=== PATIENT | male | born 1955 | race Two or more races ===

== ENCOUNTER 2018-06-25 11:13 | Inpatient (IN) ==
[2018-06-25] MEDS ORDERED: Lidocaine 1%/Epinephrine 1:100,000 Inj 30 ML Vial ONE (12:05)
[2018-06-25] MEDS ORDERED: Metoprolol Tartrate 25 MG Tablet PO ONE (12:33)
[2018-06-25] MEDS ORDERED: Chlorhexidine Gluconate 2% 1 Pack (2 Cloths) TOPICAL ONE (12:33)
[2018-06-25] MEDS ORDERED: fentaNYL Citrate Inj 100 MCG/2 ML Ampul ONE (12:50)
[2018-06-25] MEDS ORDERED: fentaNYL Citrate Inj 250 MCG/5 ML Ampul ONE (12:51)
[2018-06-25 12:54] LABS: Prothrombin Time 10.5 sec (9.8-11.6)
[2018-06-25] MEDS ORDERED: Sodium Chlor 0.9% Inj 500 ML IV.SIG SCH (13:00)
[2018-06-25] MEDS ORDERED: ceFAZolin 2 GM Premix Inj 2 GM/50 ML PIGGYBACK IV.SIG ONE (13:47)
[2018-06-25] MEDS ORDERED: ceFAZolin Inj 2,000 MG in Sodium Chlor 0.9% Inj 100 ML IV.SIG SCH (14:00)
[2018-06-25] MEDS ORDERED: Morphine Inj 4 MG/ML Vial IM PRN (18:20)
[2018-06-25] MEDS ORDERED: *Meperidine Inj 25 MG/ML Vial PERIprocedural Use ONLY ONE (18:55)
[2018-06-25] MEDS ORDERED: Sodium Chlor 0.9% Inj 1,000 ML IV.SIG SCH (19:00)
[2018-06-25] MEDS ORDERED: *morphine SULFATE 4 MG/ML PERIprocedure ONLY ONE (19:15)
[2018-06-25 19:53] LABS: Baso % (Auto) 0.4 % (0.0-2.0); Eos % (Auto) 0.1 % (0.0-4.0); Hematocrit 37.9 % (39.0-51.0); Hemoglobin 12.8 gm/dL (13.0-17.0); Lymph # (Auto) 0.6 th/mm3 (1.0-4.8); Lymph % (Auto) 6.1 % (9.0-44.0); Mean Corpuscular HGB Conc 33.8 % (32.0-36.0); Mean Corpuscular Hemoglobin 30.6 pg (27.0-34.0); Mean Corpuscular Volume 90.5 fL (80.0-100.0); Mean Platelet Volume 8.5 fL (7.0-11.0); Mono # (Auto) 0.1 th/mm3 (0.0-0.9); Mono % (Auto) 1.5 % (0.0-8.0); Neut # (Auto) 8.6 th/mm3 (1.8-7.7); Neut % (Auto) 91.9 % (16.0-70.0); Platelet Count 161 th/mm3 (150-450); Red Blood Count 4.19 mil/mm3 (4.50-5.90); Red Cell Distribution Width 12.7 % (11.6-17.2); White Blood Count 9.3 th/mm3 (4.0-11.0)
[2018-06-25 20:23] LABS: Calcium 7.8 mg/dL (8.5-10.1); Potassium 3.9 meq/L (3.5-5.1)
[2018-06-25] MEDS: Ketorolac Inj 30 MG/ML (IVP) Vial IV.PUSH SCH (21:08)
[2018-06-25] MEDS: Pantoprazole Inj 40 MG Vial IV.PUSH SCH (21:09)
[2018-06-25] MEDS: Docusate Sodium 100 MG Capsule PO SCH (21:10)
--- NOTE | 2018-06-25 21:11 | MP ---
cc: Golden Palacios MD DATE OF OPERATION: 06/25/2018 PREOPERATIVE DIAGNOSIS: [place] 3+4=7 prostate cancer. POSTOPERATIVE DIAGNOSIS: [place] 3+4=7 prostate cancer. PROCEDURE: Robotic-assisted laparoscopic radical prostatectomy with pelvic lymph node dissection. SURGEON: Golden Palacios MD DIGITAL MEDIA REPRESENTATIVE: Dr. Garcia ANESTHESIA: General. COMPLICATIONS: None. PREOPERATIVE ANTIBIOTICS: Ancef 1 gram IV. DRAINS: 1. Mathias catheter to drainage. 2. TAMMI drain to bulb suction. ESTIMATED BLOOD LOSS: 300 mL SPECIMENS: 1. Prostate, seminal vesicles. 2. Pelvic lymph nodes. 3. Left apical tissue. DISPOSITION: The patient was taken stable to recovery. INDICATIONS/SIGNIFICANT HISTORY: The patient is a 62-year-old male with a family history of prostate cancer. The patient was found to have an elevated PSA of 8. Transrectal ultrasound prostate biopsy was performed, which showed a [place] 3+4=7 prostate cancer. Treatment options discussed and he elected to proceed with robotic prostatectomy. Preoperative pelvic MRI was performed, which suggested an extraprostatic extension on the right posterolateral portion of the prostate. It also showed a 30 gram with the PI-RADS 5 lesion corresponding to the right posterolateral portion of the prostate. After risks, benefits, and alternatives were explained to the patient including the risk of urinary incontinence, erectile dysfunction, positive margin and need for adjuvant therapy. The patient elected to proceed. Informed consent was obtained. DETAILS OF PROCEDURE: The patient was properly identified and brought back to the operating room and laid supine on the operating table. Proper timeout was performed. After induction by Anesthesiology, the patient was then induced under general anesthetic. Appropriate preoperative antibiotics were given with one hour of start of procedure. The patient was placed in a steep Trendelenburg position. All pressure points were padded. The patient was then prepped and draped in normal sterile surgical fashion. A 16-Sinhala Mathias catheter was placed under sterile technique and clear urine returned. A stab incision was made just superior and lateral to the umbilicus on the patient's right side. Veress needle was then used to gain access to the abdominal cavity. Pneumoperitoneum was achieved. I then placed the 12 mm camera port after extending the incision blindly into the abdominal cavity, I then inserted the laparoscope. There was no evidence of bleeding or intra-abdominal injury. The abdomen was carefully inspected. No evidence of intra-abdominal adhesions. At this time, the 5 remaining ports were placed under direct visualization, including three 8 mm robotic ports, 2 on the left hand side and 1 on the right hand side. A 5 mm sucker port triangulated between the camera port and the right hand robotic port and a 12 mm certified nursing assistant instructor port near the ASIS on the patient's right side. All ports were placed under direct visualization. There was no intra-abdominal injury. At this time, the robot was then brought into position. I did reflect the takedown the left sigmoid colon with cold cut scissors. At this time, I then entered the space of Retzius by dropping the bladder in standard fashion. The periprostatic fat was then removed. This included the superficial DVC which was taken with a Bovie electrocautery. Once the periprostatic fat and superficial DVC were removed, then entered endopelvic fascia on the right hand side with both blunt and sharp dissection, I dissected the pelvic musculature towards the apex of the prostate. There was some significant accessory vessels, which did cause some bleeding, but these were controlled with bipolar electrocautery. Once I got towards the anterior portion of the prostate, I then switched to the left side, again entered the endopelvic fascia with scissors and bluntly dissected the muscular off of the prostate towards the anterior portion of the prostate. The patient's DVC was hard to delineate at this time. Therefore, I decided to turn my attention to the bladder neck. The bladder neck was easily identified. I then dissected down anteriorly through the bladder neck until the Mathias catheter was seen. The patient appeared to have a small median lobe. I was able to excise this median lobe and develop the posterior bladder neck. The bladder appeared to be intact. The bladder neck appeared to be preserved and very small. Both orifices were identified and were quite some distance from the bladder neck itself. I then entered the posterior Denonvilliers fascia and encountered the seminal vesicles. The seminal vessels were carefully dissected out in a standard fashion. The vas was divided and each side and used for retraction anteriorly. I was able to dissect the posterior portion of the prostate and bluntly dissect the rectum and posterior Denonvilliers off the underside of the prostate towards the apex of the prostate. At this point, I did a wide dissection, first on the right side due to the findings of the MRI, I did not nerve spare on the right side. Dissection was done with a robotic vessel sealer all the way towards the apex of the prostate. I did a nerve spare on the left side. I then was able to dissection close to the prostatic margin. A combination of blunt dissection and electrocautery was used. Once the posterior portion of the prostate was done, then turned to the anterior portion of the prostate. The prostate was completely mobilized and I was able to further delineate the DVC itself. A 1-0 loop Stratafix was then used to ligate the DVC stitch. I then came through anterior on the prostate, dividing the DVC exposing the anterior urethra. The catheter was then retracted. I divided the urethra with cold cut scissors. Rectourethralis muscle was then divided with scissors as well. At this point, the prostate was completely freed, it was then placed in the right colon gutter for later removal. The prostatic fossa was then inspected. There was some tissue at the left apex. This was carefully dissected out and sent off to Pathology for permanent. The rectum itself appeared to be intact. Hemostasis was achieved. At this point, I then did remove the lymph nodes from around the right obturator nerve. The lymph nodes were peeled off of the right obturator nerve and sent off to the pathologist. The nerve remained intact. A clip was then used at the end to divide the lymph nodes. I attempted a lymph node dissection on the left side, but the planes were very difficult to delineate for no apparent reason. However, due to the patient's anatomy, I decided not to do a lymph node dissection on the left side. At this point, a watertight vesicourethral anastomosis was then performed with a double armed 2-0 Quill stitch. The catheter was then irrigated at the end and there was no evidence of a leak. The catheter was seen going directly into the bladder under direct visualization. It was secured with 20 mL of sterile water. Three grams of J Luis was then used for hemostatic purposes. A TAMMI drain was then placed through the third robotic port, secured with 3-0 nylon. All ports were then removed under direct visualization. The prostate was placed in EndoCatch bag and extracted through the midline incision. It was closed with 3 interrupted 0 Vicryl. All skin incisions were closed with Monocryl and Dermabond. Sponge, needle and instrument count were correct at the end of the case. The patient was then extubated and sent to the recovery in stable condition, where he will be then transferred to the floor for routine postoperative care. A total of 3 liters of fluid were given during this case. MD MERISSA Dumont/anatoly , 06:31 PM , 06:47 PM
[2018-06-26 06:17] LABS: Hematocrit 37.7 % (39.0-51.0); Hemoglobin 12.2 gm/dL (13.0-17.0); Mean Corpuscular HGB Conc 32.4 % (32.0-36.0); Mean Corpuscular Hemoglobin 29.5 pg (27.0-34.0); Mean Corpuscular Volume 91.1 fL (80.0-100.0); Mean Platelet Volume 8.2 fL (7.0-11.0); Platelet Count 149 th/mm3 (150-450); Red Blood Count 4.14 mil/mm3 (4.50-5.90); Red Cell Distribution Width 12.6 % (11.6-17.2); White Blood Count 8.1 th/mm3 (4.0-11.0)
[2018-06-26 06:40] LABS: Carbon Dioxide 31.5 meq/L (21.0-32.0); Potassium 4.4 meq/L (3.5-5.1)
[2018-06-26] MEDS: Ketorolac Inj 30 MG/ML (IVP) Vial IV.PUSH SCH ×4 (06:59→22:31)
[2018-06-26] MEDS: Docusate Sodium 100 MG Capsule PO SCH ×2 (10:37→22:33)
--- NOTE | 2018-06-26 12:34 | P.PNURO ---
Subjective Patient symptoms today: Pt is s/p Robotic prostatectomy yesterday. Doing well. c/p some abd soreness at the incision sites, no f/c/n/v, Labs are stable. Ashby is in place, Urine is yellow color. Good UO. Minimal TAMMI output. Tolerated regular breakfast well He did not walk yet Objective Vital Signs: Vital Signs 06/25/18 18:50 06/25/18 19:00 06/25/18 19:15 Temperature 97.2 F L 97.5 F L Pulse Rate 87 80 73 Respiratory Rate 19 25 H 19 Blood Pressure 117/71 147/96 H 115/61 Pulse Oximetry 96 95 95 06/25/18 19:30 06/25/18 20:00 06/26/18 00:00 Temperature 98 F 98.4 F Pulse Rate 96 H 91 H Respiratory Rate 20 20 Blood Pressure 119/66 108/69 Pulse Oximetry 95 84 L 98 06/26/18 04:00 Temperature 98.2 F Pulse Rate 76 Respiratory Rate 18 Blood Pressure 106/62 Pulse Oximetry 98 Intake & Output 06/25/18 06/26/18 06/26/18 18:59 06:59 18:59 Intake Total 3000 / 3000 150 / 150 100 / 100 Output Total 300 / 300 800 / 800 Balance 2700 / 2700 -650 / -650 100 / 100 Weight 87.7 kg 87.7 kg Intake: IV 150 / 150 100 / 100 Ancef 2 GM Premix Inj 2 gm In 50 / 50 50 ml @ 0 mls/hr IV.SIG .STK- [facility] Rx#:[id number] Ancef Inj 1,000 MG In NS Inj 100 / 100 100 / 100 100 ML @ 200 mls/hr IV.SIG Q8H AKIRA Rx#:[id number] Anesthesia Amount 3000 / 3000 Output: Estimated Blood Loss 300 / 300 Urine Amount (Catheter) 800 / 800 Indwelling Urethral Catheter 800 / 800 Other: Weight On Admission 87.7 kg Result Diagrams: 06/26/18 05:57 06/26/18 05:57 Medications and IVs: Active Medications Generic Name Dose Route Start Last Admin Trade Name Freq PRN Reason Stop Dose Admin Docusate Sodium 100 mg 06/25/18 21:00 06/26/18 10:37 Colace PO 100 mg BID AKIRA Administration Lactated Ringer's 1,000 mls @ 30 mls/hr 06/25/18 12:45 06/25/18 12:00 Lr 1000 Ml Inj IV.SIG 06/26/18 12:44 30 mls/hr .Q24H AKIRA Administration Sodium Chloride 500 mls @ 30 mls/hr 06/25/18 13:00 06/25/18 12:48 Ns Inj IV.SIG Not Given .Q10H AKIRA Sodium Chloride 1,000 mls @ 125 mls/hr 06/25/18 19:00 Ns Inj IV.SIG .Q10H AKIRA Cefazolin Sodium 1,000 mg/ 100 mls @ 200 mls/hr 06/25/18 22:00 06/26/18 10:37 Sodium Chloride IV.SIG 06/26/18 14:29 Infused Q8H AKIRA Infusion Ketorolac Tromethamine 15 mg 06/25/18 20:00 06/26/18 10:36 Toradol Inj IV.PUSH 06/30/18 19:59 15 mg Q6H AKIRA Administration Miscellaneous Information 1 each 06/25/18 19:32 Misc Nursing Information OTHER 06/26/18 19:32 UNSCH PRN SEE LABEL COMMENTS Morphine Sulfate 4 mg 06/25/18 18:20 Morphine Inj IM Q4H PRN BREAKTHROUGH PAIN Ondansetron HCl 4 mg 06/25/18 18:19 06/25/18 22:10 Zofran Inj IV.PUSH 4 mg Q6H PRN Administration NAUSEA OR VOMITING Oxycodone/Acetaminophen 2 tab 06/25/18 18:19 06/26/18 06:55 Percocet 5/325 Mg PO 2 tab Q4H PRN Administration PAIN SCALE 5-10/SEVERE COUGH Pantoprazole Sodium 40 mg 06/25/18 20:00 06/25/18 21:09 Protonix Inj IV.PUSH 40 mg Q24H AKIRA Administration Objective Remarks: NAD RRR Clear Lungs Abd NT ND. Incisions are healing well Ashby is in place Assessment and Plan - Plan 62y.o M POD #1 s/p RRP on 06/25/18 - Doing well VS and Labs are stable Ashby is draining well, keep ashby in and d/c home with it TAMMI drain has minimal output and will de removed at discharge Pt tolerates reg diet well Pain well controlled OOB to ambulate, if no issues with ambulation might be d/c home later today. Discussed Condition With: Dr Suzanne SULTANA attending and RN
--- NOTE | 2018-06-26 15:08 | ECG ---
Date Performed: 06/25/2018 Time Performed: 12:21:18 PTAGE: 62 years EKG: Sinus rhythm NORMAL ECG NO PREVIOUS TRACING DOCTOR: Lencho Blas Interpretating Date/Time 06/26/2018 15:06:02
[2018-06-26] MEDS: Pantoprazole Inj 40 MG Vial IV.PUSH SCH (22:32)
[2018-06-27] MEDS: Ketorolac Inj 30 MG/ML (IVP) Vial IV.PUSH SCH ×2 (05:35→10:52)
[2018-06-27 08:10] VITALS: RESP 18
--- NOTE | 2018-06-27 10:00 | XR ---
EXAM DATE: 06/27/2018 9:51 AM EDT AGE/SEX: 62 years / Male INDICATIONS: . Congestion post op prostatectomy 06/25/2018. CLINICAL DATA: This is the patient's subsequent encounter. Patient reports that signs and symptoms h ave been present for 3 days and indicates a pain score of 0/10. MEDICAL/SURGICAL HISTORY: Carcinoma, prostatic. Cholecystectomy. Prostatectomy. Partial colect tamy. COMPARISON: No prior exams available for comparison. FINDINGS: Moderate pneumoperitoneum is present. There is atelectasis in the lung bases. No significant effusion . No pneumothorax. Cardiac contours are grossly satisfactory. Thoracic skeleton is intact. Subcutaneo us emphysema is present in visualized abdomen. CONCLUSION: Prominent pneumoperitoneum and subcutaneous emphysema. Mild basilar atelectasis. Electronically signed by: Tutu Pierson MD 06/27/2018 9:58 AM EDT
[2018-06-27] MEDS: Docusate Sodium 100 MG Capsule PO SCH (10:52)
[2018-06-27 12:57] VITALS: BP 110/64; PULSE 84; TEMP 98.2; O2SAT 92
== END 2018-06-27 12:55 | disposition home or self-care (01) ==
LOC: HSDC 11:13 → EDSTATUS 13:30 → HSDI 18:15 → N07 19:52
PROVIDERS: ADMIT Urology; ATTEND Urology